=== PATIENT | female | born 1990 | race Caucasian/White ===

== ENCOUNTER 2017-02-23 14:04 | Emergency (ER) | payer MEDICAID, OTHER ==
[~2017-02-23] VITALS: Ht 157.5 cm; Wt 67.1 kg
[~2017-02-23 14:04] MED LIST: CIPR500T4 PO
[2017-02-23 14:10] VITALS: BP 110/70; PULSE 70; RESP 20; TEMP 98.3; O2SAT 100
[2017-02-23 14:19] VITALS: BP 133/82; PULSE 73; RESP 18; O2SAT 100
[2017-02-23 14:25] VITALS: O2SAT 100
[2017-02-23 14:40] VITALS: BP 105/62; PULSE 66; RESP 18; O2SAT 100
--- NOTE | 2017-02-23 14:48 | RADRPT ---
EXAM DATE/TIME: 02/23/2017 14:22 [place] COMPARISON: No previous studies available for comparison. INDICATIONS : Patient has had chest pain for one week. MEDICAL HISTORY : None. SURGICAL HISTORY : None. ENCOUNTER: Initial ACUITY: 1 week PAIN SCORE: 7/10 LOCATION: Left chest FINDINGS: A single view of the chest demonstrates the lungs to be symmetrically aerated without evidence of mas s, infiltrate or effusion. The cardiomediastinal contours are unremarkable. Osseous structures are intact. CONCLUSION: 1. No acute cardiopulmonary disease. Tad Norris MD on February 23, 2017 at 14:45 Board Certified Radiologist. This report was verified electronically.
[2017-02-23 14:49] LABS: AUTOMATED NEUTROPHIL # 3.9 TH/MM3 (1.8-7.7); BASOPHIL # 0.1 TH/MM3 (0-0.2); BASOPHIL % 0.8 % (0.0-2.0); EOSINOPHIL # 0.1 TH/MM3 (0-0.4); HEMATOCRIT 39.1 % (35.0-46.0); HEMO FLAGS DIFF FINAL; LYMPH % 35.3 % (9.0-44.0); LYMPHOCYTE # 2.4 TH/MM3 (1.0-4.8); MEAN CELL VOLUME 87.6 FL (80.0-100.0); MEAN CORPUSCULAR HEMOGLOBIN 30.1 PG (27.0-34.0); MEAN CORPUSCULAR HGB CONC 34.4 % (32.0-36.0); MONO % 6.4 % (0.0-8.0); NEUT % 55.5 % (16.0-70.0); PLATELET COUNT 212 TH/MM3 (150-450); RED BLOOD COUNT 4.46 MIL/MM3 (4.00-5.30); RED CELL DISTRIBUTION WIDTH 12.8 % (11.6-17.2); WHITE BLOOD COUNT 6.9 TH/MM3 (4.0-11.0)
[2017-02-23 14:56] LABS: CHLORIDE 107 MEQ/L (98-107); POTASSIUM 3.4 MEQ/L (3.5-5.1); SODIUM (NA) 142 MEQ/L (136-145)
[2017-02-23 14:59] LABS: ANION GAP 10 MEQ/L (5-15); BICARBONATE 25.3 MEQ/L (21.0-32.0); BLOOD UREA NITROGEN 14 MG/DL (7-18)
[2017-02-23] MEDS ORDERED: ACETAMINOPHEN 325 MG TAB PO ONE (15:00)
[2017-02-23 15:02] LABS: GLOMERULAR FILTRATION RATE 70 ML/MIN (>89)
--- NOTE | 2017-02-23 15:02 | PD ---
HPI Chief Complaint: Chest Pain Time Seen by Provider: 14:25 Travel History International Travel<30 days: No Contact w/Intl Traveler<30days: No Traveled to known affect area: No History of Present Illness HPI 26yo F with no PMH presents to the ED with c/o left sided chest pain for 1 week. It is sharp, intermittent, and nonradiating. Associated with some sob. Denies any fever, cough, n/v, abdominal pain, focal weakness, history of PE/DVT , OCP use. Took ibuprofen this morning with some relief. PFSH Past Medical History Depression: Yes Diminished Hearing: No Immunizations Current: Yes ?: Unknown Menopausal: No : 4 Para: 0 Miscarriage: 1 : 0 Ectopic : No Ovarian Cysts: No Dilation and Curettage (D&C): Yes Tubal Ligation: No Past Surgical History Surgical History: No Previous Surgery Section: No Hysterectomy: No Social History Alcohol Use: No Tobacco Use: No Substance Use: No Allergies-Medications (Allergen,Severity, Reaction): Coded Allergies: No Known Allergies (Verified , 11/08/15) Reported Meds & Prescriptions Reported Meds & Active Scripts Active Ibuprofen 600 Mg Tab 600 Mg PO Q8HR PRN Cipro (Ciprofloxacin HCl) 500 Mg Tab 500 Mg PO BID Review of Systems Except as stated in HPI: all other systems reviewed are Neg Physical Exam Narrative GENERAL: 26yo F not in distress. SKIN: Focused skin assessment warm/dry. HEAD: Atraumatic. Normocephalic. EYES: Pupils equal and round. No scleral icterus. No injection or drainage. ENT: No nasal bleeding or discharge. Mucous membranes pink and moist. NECK: Trachea midline. No JVD. CARDIOVASCULAR: Regular rate and rhythm. No murmur appreciated. RESPIRATORY: No accessory muscle use. Clear to auscultation. Breath sounds equal bilaterally. CHEST WALL: +TTP left chest. No rash. GASTROINTESTINAL: Abdomen soft, non-tender, nondistended. No rebound tenderness or guarding. MUSCULOSKELETAL: No obvious deformities. No clubbing. No cyanosis. No edema. NEUROLOGICAL: Awake and alert. No obvious cranial nerve deficits. Motor grossly within normal limits. Normal speech. PSYCHIATRIC: Appropriate mood and affect; insight and judgment normal. Data Data Last Documented VS Vital Signs Date Time Temp Pulse Resp B/P Pulse Ox O2 Delivery O2 Flow Rate FiO2 02/23/17 14:40 66 18 105/62 100 Room Air 02/23/17 14:10 98.3 Orders Electrocardiogram (02/23/17 14:15) Complete Blood Count With Diff (02/23/17 14:15) Basic Metabolic Panel (Bmp) (02/23/17 14:15) Ckmb (Isoenzyme) Profile (02/23/17 14:15) Troponin I (02/23/17 14:15) Chest, Single Ap (02/23/17 14:15) Iv Access Insert/Monitor (02/23/17 14:15) Ecg Monitoring (02/23/17 14:15) Oxygen Administration (02/23/17 14:15) Oximetry (02/23/17 14:15) Ed Urine Pregnancytest Poc (02/23/17 14:15) D-Dimer (02/23/17 14:48) Acetaminophen (Tylenol) (02/23/17 15:00) CKMB (02/23/17 14:35) CKMB% (02/23/17 14:35) Labs Laboratory Tests Test 02/23/17 14:35 White Blood Count 6.9 TH/MM3 Red Blood Count 4.46 MIL/MM3 Hemoglobin 13.4 GM/DL Hematocrit 39.1 % Mean Corpuscular Volume 87.6 FL Mean Corpuscular Hemoglobin 30.1 PG Mean Corpuscular Hemoglobin 34.4 % Concent Red Cell Distribution Width 12.8 % Platelet Count 212 TH/MM3 Mean Platelet Volume 8.2 FL Neutrophils (%) (Auto) 55.5 % Lymphocytes (%) (Auto) 35.3 % Monocytes (%) (Auto) 6.4 % Eosinophils (%) (Auto) 2.0 % Basophils (%) (Auto) 0.8 % Neutrophils # (Auto) 3.9 TH/MM3 Lymphocytes # (Auto) 2.4 TH/MM3 Monocytes # (Auto) 0.4 TH/MM3 Eosinophils # (Auto) 0.1 TH/MM3 Basophils # (Auto) 0.1 TH/MM3 CBC Comment DIFF FINAL Differential Comment D-Dimer Quantitative (PE/DVT) LESS THAN 0.19 MG/L FEU Sodium Level 142 MEQ/L Potassium Level 3.4 MEQ/L Chloride Level 107 MEQ/L Carbon Dioxide Level 25.3 MEQ/L Anion Gap 10 MEQ/L Blood Urea Nitrogen 14 MG/DL Creatinine 0.96 MG/DL Estimat Glomerular Filtration 70 ML/MIN Rate Random Glucose 98 MG/DL Calcium Level 9.3 MG/DL Total Creatine Kinase 614 U/L Creatine Kinase MB 5.5 NG/ML Creatine Kinase MB % 0.9 % Troponin I LESS THAN 0.02 NG/ML MDM Medical Decision Making Medical Screen Exam Complete: Yes Emergency Medical Condition: Yes Interpretation(s) EKG: NSR 73bpm. Normal axis. No ST segment elevation or depression. Differential Diagnosis Musculoskeletal pain vs. atypical chest pain vs. PE vs. pericarditis Narrative Course 26yo F with atypical chest pain. Labs reviewed, no leukocytosis. Troponin negative. CPK elevated at 614. CKMB % is normal. D-dimer negative at 0.19. CXR negative. Pt given acetaminophen. Do not feel chest pain is cardiac. Diagnosis Primary Impression: Atypical chest pain Patient Instructions: General Instructions Departure Forms: Tests/Procedures Additional Instructions: Please follow up with your PMD in 1-2 days. Return to the ED if symptoms worsen. Med/Other Pt SpecificInfo: Prescription(s) given Scripts Ibuprofen 600 Mg Bai650 Mg PO Q8HR PRN (PAIN) #20 TAB Ref 0 Prov:Ely Pelletier DO 02/23/17 Disposition: 01 DISCHARGE HOME Condition: Stable Ely Pelletier DO Feb 23, 2017 15:02
[2017-02-23 15:05] LABS: CREATINE KINASE 614 U/L (26-192)
[2017-02-23 15:17] LABS: CKMB 5.5 NG/ML (0.5-3.6)
[2017-02-23] MEDS ORDERED: IBUP-232 PO (15:48)
[2017-02-23 15:59] VITALS: BP 104/79
--- NOTE | 2017-02-24 16:16 | EKG ---
Date Performed: 02/23/2017 Time Performed: 14:17:17 PTAGE: 26 years EKG: Sinus rhythm NORMAL ECG INTERPRETATION BASED ON A DEFAULT AGE OF 40 YEARS PREVIOUS TRACING : 05/04/2015 18.26 Compared to prior tracing no significant change DOCTOR: Lenin Wilhelm Interpretating Date/Time 02/24/2017 16:15:13
== END 2017-02-23 16:06 | disposition home or self-care (01) ==
LOC: PHED 14:04
DX: R07.89 Other chest pain (principal)
CPT/HCPCS: 71010; 80048; 82550; 82552; 84484; 84703; 85025; 85379; 93005; 99285